=== PATIENT | male | born 1945 | race Caucasian/White ===

== ENCOUNTER 2017-01-15 23:43 | Emergency (ER) | payer MEDICARE ==
[~2017-01-15] VITALS: Ht 170.2 cm; Wt 113.0 kg
[~2017-01-15 23:43] MED LIST: ASPI81 PO; BENA20TA PO; BYST10TA2 PO; CINN500C7 PO; HYDR12.56 PO; LORTA5 PO; PROS5TAB2 PO; TAB-TAB PO; TAMS0.4C67 PO; ULTR50TA PO
[2017-01-15 23:46] VITALS: BP 191/100; PULSE 74; RESP 16; TEMP 98.3; O2SAT 97
[2017-01-16 02:00] LABS: BLOOD, URINE LARGE (NEG); COMMENT (UR) CULTURE INDICATED; CULTURE IF INDICATED CULTURE INDICATED; GLUCOSE,URINE NEG (NEG); KETONE, URINE NEG (NEG); NITRITE,URINE NEG (NEG); PH, URINE 5.5 (5.0-8.5); SQUAMOUS EPITHELIAL CELL URINE 2 /hpf (0-5)
[2017-01-16 02:04] LABS: URINE COLOR RED (YELLW/STRAW)
[2017-01-16] MEDS ORDERED: BYST10TA2 PO (02:53)
[2017-01-16] MEDS ORDERED: BENA20TA PO (02:53)
[2017-01-16] MEDS ORDERED: HYDR25TA5 PO (02:53)
[2017-01-16] MEDS ORDERED: MULT1TAB84 PO (02:53)
[2017-01-16] MEDS ORDERED: HYDR-3516 PO (02:53)
[2017-01-16] MEDS ORDERED: ASPI81CH CHEW (02:53)
[2017-01-16] MEDS ORDERED: CINN500C PO (02:53)
[2017-01-16] MEDS ORDERED: FINA5TAB2 PO (02:53)
[2017-01-16] MEDS ORDERED: TAMS0.4C4 PO (02:53)
[2017-01-16] MEDS ORDERED: SODIUM CHLOR 0.9% 1000 ML INJ 1,000 ML IV ONE (03:15)
[2017-01-16 03:44] LABS: AUTOMATED NEUTROPHIL # 6.3 TH/MM3 (1.8-7.7); BASOPHIL # 0.1 TH/MM3 (0-0.2); BASOPHIL % 0.8 % (0.0-2.0); EOSINOPHIL # 0.4 TH/MM3 (0-0.4); EOSINOPHIL % 4.6 % (0.0-4.0); HEMATOCRIT 45.8 % (39.0-51.0); HEMO FLAGS DIFF FINAL; LYMPHOCYTE # 1.6 TH/MM3 (1.0-4.8); MEAN CELL VOLUME 94.2 FL (80.0-100.0); MEAN CORPUSCULAR HEMOGLOBIN 31.7 PG (27.0-34.0); MEAN CORPUSCULAR HGB CONC 33.6 % (32.0-36.0); MONO % 7.5 % (0.0-8.0); NEUT % 69.1 % (16.0-70.0); PLATELET COUNT 167 TH/MM3 (150-450); RED BLOOD COUNT 4.86 MIL/MM3 (4.50-5.90); RED CELL DISTRIBUTION WIDTH 13.5 % (11.6-17.2); WHITE BLOOD COUNT 9.1 TH/MM3 (4.0-11.0)
[2017-01-16 04:48] LABS: APTT (PATIENT) 25.4 SEC (24.3-30.1); PROTHROMBIN TIME - PATIENT 11.3 SEC (9.8-11.6)
[2017-01-16 04:54] LABS: BICARBONATE 27.6 MEQ/L (21.0-32.0)
[2017-01-16 04:55] LABS: POTASSIUM 3.8 MEQ/L (3.5-5.1)
--- NOTE | 2017-01-16 05:28 | PD ---
HPI Chief Complaint: Complaint Time Seen by Provider: 02:58 Travel History International Travel<30 days: No Contact w/Intl Traveler<30days: No Traveled to known affect area: No History of Present Illness HPI Patient is a 71 year old male who comes in complaining of blood in his urine. He was diagnosed with bladder cancer and had an intra-bladder treatment today. He says this was his third treatment and when he went home from the office, he noticed there was blood in his urine. He says this did not happen the other two treatments. He denies any pain. He denies dizziness, chest pain, or SOB. He says he passed a few clots, but it seems to be improving now. He denies any difficulty urinating. PFSH Past Medical History Arthritis: Yes (OSTEO) Cancer: Yes (SKIN) Cardiac Catheterization: Yes (05/24/09) Cardiovascular Problems: Yes (HTN) Chemotherapy: Yes (BLADDER CA--PMD IN [place]) Diabetes: No Diminished Hearing: Yes (BILATERAL) Diverticulitis: Yes (BOWEL RESECT 2012 FOR DIVERTICULI) Endocrine: No Gastrointestinal Disorders: No Genitourinary: Yes (BPH) Hepatitis: No Hiatal Hernia: No Hypertension: Yes Immune Disorder: No Musculoskeletal: Yes (ARTHRITIS) Neurologic: Yes (NEUROPATHY (SHINGLES HX) RIGHT LEG) Psychiatric: No Respiratory: Yes (ASTHMA (YOUTH)) Immunizations Current: Yes Thyroid Disease: No Tetanus Vaccination: < 5 Years Influenza Vaccination: Yes Past Surgical History Abdominal Surgery: Yes (PRAMOD. ING. HERNIA 1978; COLON RESECTION, LAP YAAKOV., 2007) AICD: No Body Medical Devices: tooth implant Cholecystectomy: Yes Joint Replacement: No Pacemaker: No Other Surgery: Yes (SKIN CA REMOVED L ARM AND NOSE (basal cell)) Social History Alcohol Use: Yes (occasionally) Tobacco Use: No Substance Use: No Allergies-Medications (Allergen,Severity, Reaction): Coded Allergies: Naprosyn (Verified Allergy, Severe, 01/15/17) Quinapril (Verified Allergy, Severe, 01/15/17) Septra (Verified Allergy, Severe, 01/15/17) Reported Meds & Prescriptions Reported Meds & Active Scripts Active Reported Tamsulosin (Tamsulosin HCl) 0.4 Mg Cap 0.4 Mg PO HS Bystolic (Nebivolol) 10 Mg Tab 10 Mg PO DAILY Multivitamin Adults (Multiple Vitamins W/ Minerals) 1 Tab 1 Tab PO DAILY Hydrochlorothiazide 25 Mg Tab 25 Mg PO DAILY Hydrocodone-Acetaminophen 5-325 mg Tab 1 Tab PO Q4H PRN Finasteride 5 Mg Tab 5 Mg PO DAILY Do not crush. Cinnamon 500 Mg Cap 2 Tab PO BID Benazepril (Benazepril HCl) 20 Mg Tab 20 Mg PO DAILY Aspirin 81 Mg Chew 81 Mg CHEW DAILY Review of Systems Except as stated in HPI: all other systems reviewed are Neg General / Constitutional: No: Fever, Chills HENT: No: Headaches, Lightheadedness Cardiovascular: No: Chest Pain or Discomfort, Palpitations Respiratory: No: Shortness of Breath Gastrointestinal: No: Nausea, Vomiting, Abdominal Pain Genitourinary: Positive: Hematuria, No: Dysuria Skin: No Rash, No Change in Pigmentation Neurologic: No: Weakness, Dizziness Physical Exam Narrative GENERAL: Awake and alert, in no acute distress. SKIN: Warm and dry. HEAD: Atraumatic. Normocephalic. EYES: Pupils equal and round. No scleral icterus. No conjunctival pallor. ENT: Mucous membranes pink and moist. NECK: Trachea midline. No JVD. CARDIOVASCULAR: Regular rate and rhythm. RESPIRATORY: No accessory muscle use. Clear to auscultation. Breath sounds equal bilaterally. GASTROINTESTINAL: Abdomen soft, non-tender, nondistended. MUSCULOSKELETAL: Extremities without clubbing, cyanosis, or edema. No obvious deformities. NEUROLOGICAL: Awake and alert. No obvious cranial nerve deficits. Motor grossly within normal limits. Five out of 5 muscle strength in the arms and legs. Normal speech. PSYCHIATRIC: Appropriate mood and affect; insight and judgment normal. Data Data Last Documented VS Vital Signs Date Time Temp Pulse Resp B/P Pulse Ox O2 Delivery O2 Flow Rate FiO2 01/15/17 23:46 98.3 74 16 191/100 97 Room Air Orders Urinalysis - C+S If Indicated (01/16/17 01:12) Urine Culture (01/16/17 01:15) Complete Blood Count With Diff (01/16/17 03:05) Basic Metabolic Panel (Bmp) (01/16/17 03:05) Act Partial Throm Time (Ptt) (01/16/17 03:05) Prothrombin Time / Inr (Pt) (01/16/17 03:05) Sodium Chlor 0.9% 1000 Ml Inj (Ns 1000 M (01/16/17 03:15) Labs Laboratory Tests Test 01/16/17 01/16/17 01/16/17 01/16/17 01:15 03:15 03:45 04:00 Urine Color RED Urine Turbidity CLOUDY Urine pH 5.5 Urine Specific [place] 1.020 Urine Protein 100 mg/dL Urine Glucose (UA) NEG mg/dL Urine Ketones NEG mg/dL Urine Occult Blood LARGE Urine Nitrite NEG Urine Bilirubin NEG Urine Urobilinogen LESS THAN 2.0 MG/DL Urine Leukocyte Esterase LARGE Urine RBC /hpf Urine WBC /hpf Urine Squamous Epithelial 2 /hpf Cells Microscopic Urinalysis Comment CULTURE INDICATED White Blood Count 9.1 TH/MM3 Red Blood Count 4.86 MIL/MM3 Hemoglobin 15.4 GM/DL Hematocrit 45.8 % Mean Corpuscular Volume 94.2 FL Mean Corpuscular Hemoglobin 31.7 PG Mean Corpuscular Hemoglobin 33.6 % Concent Red Cell Distribution Width 13.5 % Platelet Count 167 TH/MM3 Mean Platelet Volume 9.8 FL Neutrophils (%) (Auto) 69.1 % Lymphocytes (%) (Auto) 18.0 % Monocytes (%) (Auto) 7.5 % Eosinophils (%) (Auto) 4.6 % Basophils (%) (Auto) 0.8 % Neutrophils # (Auto) 6.3 TH/MM3 Lymphocytes # (Auto) 1.6 TH/MM3 Monocytes # (Auto) 0.7 TH/MM3 Eosinophils # (Auto) 0.4 TH/MM3 Basophils # (Auto) 0.1 TH/MM3 CBC Comment DIFF FINAL Differential Comment Prothrombin Time 11.3 SEC Prothromb Time International 1.0 RATIO Ratio Activated Partial 25.4 SEC Thromboplast Time Sodium Level 141 MEQ/L Potassium Level 3.8 MEQ/L Chloride Level 104 MEQ/L Carbon Dioxide Level 27.6 MEQ/L Anion Gap 9 MEQ/L Blood Urea Nitrogen 25 MG/DL Creatinine 0.97 MG/DL Estimat Glomerular Filtration 76 ML/MIN Rate Random Glucose 103 MG/DL Calcium Level 8.8 MG/DL [facility] Medical Decision Making Medical Screen Exam Complete: Yes Emergency Medical Condition: Yes Medical Record Reviewed: Yes Differential Diagnosis hematuria vs UTI vs anemia Narrative Course Patient is a 71 year old male who comes in complaining of hematuria. His exam shows no distention of his bladder, no abnormalities. Urine sent for urinalysis is bloody. Labs sent show no evidence of anemia or coagulopathy. Given IVF. He reports the blood seems to be clearing. Patient advised to follow up with his urologist. Advised to return to the ED if the bleeding worsens. Advised to return if he has any difficulty urinating. Advised to return at any time for any worsening symptoms. Diagnosis Primary Impression: Hematuria Patient Instructions: General Instructions, Hematuria (ED) Additional Instructions: Follow up with your urologist. Drink plenty of fluids. Return to the ED for any urinary retention or worsening bleeding. Disposition: 01 DISCHARGE HOME Condition: Stable Mary Waggoner MD Jan 16, 2017 05:28
== END 2017-01-16 05:40 | disposition home or self-care (01) ==
LOC: NEPC 23:43
DX: C67.9 Malignant neoplasm of bladder, unspecified (principal); R31.9 Hematuria, unspecified
CPT/HCPCS: 80048; 81001; 85025; 85610; 85730; 87086; 99283; J7030

== ENCOUNTER 2017-02-01 09:47 | Emergency (ER) | payer MEDICARE ==
[~2017-02-01] VITALS: Ht 170.2 cm; Wt 109.0 kg
[~2017-02-01 09:47] MED LIST changes: -ASPI81 PO; +ASPI81CH CHEW; +CINN500C PO; -CINN500C7 PO; +FINA5TAB2 PO; +HYDR-3516 PO; -HYDR12.56 PO; +HYDR25TA5 PO; -LORTA5 PO; +MULT1TAB84 PO; -PROS5TAB2 PO; -TAB-TAB PO; +TAMS0.4C4 PO; -TAMS0.4C67 PO; -ULTR50TA PO
[2017-02-01 09:48] VITALS: BP 153/79; PULSE 58; RESP 20; TEMP 97.4; O2SAT 96
--- NOTE | 2017-02-01 10:24 | PD ---
HPI Chief Complaint: Urinary frequency Time Seen by Provider: 10:11 Travel History International Travel<30 days: No Contact w/Intl Traveler<30days: No Traveled to known affect area: No History of Present Illness HPI 71yo M with PMH of HTN and bladder CA s/p tumor resection and currently on intrabladder chemo presents to the ED with c/o increased urinary frequency since last night. States that he has been having flu like symptoms and generalized fatigue for 3 days and did not go to his chemo session last Wednesday. Pt follows with urologist Dr. Downing in [place] and last had chemo about 10 days ago. +Nausea. +Loose nonbloody stool. Denies any fever, chills, chest pain, sob, vomiting, abdominal pain, hematuria. PFSH Past Medical History Arthritis: Yes (OSTEO) Cancer: Yes (SKIN, bladder) Cardiac Catheterization: Yes (05/24/09) Cardiovascular Problems: Yes Chemotherapy: Yes Diabetes: No Diminished Hearing: Yes (BILATERAL) Diverticulitis: Yes (BOWEL RESECT 2012 FOR DIVERTICULI) Endocrine: No Gastrointestinal Disorders: No Genitourinary: Yes (BPH) Hepatitis: No Hiatal Hernia: No Hypertension: Yes Immune Disorder: No Musculoskeletal: Yes (ARTHRITIS) Neurologic: Yes (NEUROPATHY (SHINGLES HX) RIGHT LEG) Psychiatric: No Respiratory: Yes (ASTHMA (YOUTH)) Immunizations Current: Yes Thyroid Disease: No Tetanus Vaccination: Unknown ?: Not Past Surgical History Abdominal Surgery: Yes (PRAMOD. ING. HERNIA 1978; COLON RESECTION, LAP YAAKOV., 2008) AICD: No Body Medical Devices: tooth implant Cholecystectomy: Yes Joint Replacement: No Pacemaker: No Other Surgery: Yes (SKIN CA REMOVED L ARM AND NOSE (basal cell)) Social History Alcohol Use: Yes (occasionally) Tobacco Use: No Substance Use: No Allergies-Medications (Allergen,Severity, Reaction): Coded Allergies: Naprosyn (Verified Allergy, Severe, 02/01/17) Quinapril (Verified Allergy, Severe, 02/01/17) Septra (Verified Allergy, Severe, 02/01/17) Reported Meds & Prescriptions Reported Meds & Active Scripts Active Reported Tamsulosin (Tamsulosin HCl) 0.4 Mg Cap 0.4 Mg PO HS Bystolic (Nebivolol) 10 Mg Tab 10 Mg PO DAILY Multivitamin Adults (Multiple Vitamins W/ Minerals) 1 Tab 1 Tab PO DAILY Hydrochlorothiazide 25 Mg Tab 25 Mg PO DAILY Hydrocodone-Acetaminophen 5-325 mg Tab 1 Tab PO Q4H PRN Finasteride 5 Mg Tab 5 Mg PO DAILY Do not crush. Cinnamon 500 Mg Cap 2 Tab PO BID Benazepril (Benazepril HCl) 20 Mg Tab 20 Mg PO DAILY Aspirin 81 Mg Chew 81 Mg CHEW DAILY Review of Systems Except as stated in HPI: all other systems reviewed are Neg Physical Exam Narrative GENERAL: 71yo M not in distress. SKIN: Warm and dry. HEAD: Atraumatic. Normocephalic. EYES: Pupils equal and round. No scleral icterus. No injection or drainage. ENT: No nasal bleeding or discharge. Mucous membranes pink and moist. NECK: Trachea midline. No JVD. CARDIOVASCULAR: Regular rate and rhythm. No murmur appreciated. RESPIRATORY: No accessory muscle use. Clear to auscultation. Breath sounds equal bilaterally. GASTROINTESTINAL: Abdomen soft, non-tender, nondistended. No rebound tenderness or guarding. MUSCULOSKELETAL: No obvious deformities. No clubbing. No cyanosis. No edema. NEUROLOGICAL: Awake and alert. No obvious cranial nerve deficits. Motor grossly within normal limits. Normal speech. PSYCHIATRIC: Appropriate mood and affect; insight and judgment normal. Data Data Last Documented VS Vital Signs Date Time Temp Pulse Resp B/P Pulse Ox O2 Delivery O2 Flow Rate FiO2 02/01/17 12:22 52 18 144/87 99 02/01/17 09:48 97.4 Room Air Orders Urinalysis - C+S If Indicated (02/01/17 10:18) Complete Blood Count With Diff (02/01/17 10:18) Basic Metabolic Panel (Bmp) (02/01/17 10:18) Influenzae A/B Antigen (02/01/17 10:19) Sodium Chlorid 0.9% 500 Ml Inj (Ns 500 M (02/01/17 10:30) Labs Laboratory Tests Test 02/01/17 02/01/17 10:35 10:40 Urine Color YELLOW Urine Turbidity CLEAR Urine pH 5.0 Urine Specific [place] 1.012 Urine Protein NEG mg/dL Urine Glucose (UA) NEG mg/dL Urine Ketones NEG mg/dL Urine Occult Blood NEG Urine Nitrite NEG Urine Bilirubin NEG Urine Urobilinogen LESS THAN 2.0 MG/DL Urine Leukocyte Esterase SMALL Urine RBC LESS THAN 1 /hpf Urine WBC 5 /hpf Urine Squamous Epithelial 1 /hpf Cells Urine Bacteria OCC /hpf Urine Mucus FEW /lpf Microscopic Urinalysis Comment CULT NOT INDICATED White Blood Count 6.3 TH/MM3 Red Blood Count 4.95 MIL/MM3 Hemoglobin 15.7 GM/DL Hematocrit 45.7 % Mean Corpuscular Volume 92.3 FL Mean Corpuscular Hemoglobin 31.8 PG Mean Corpuscular Hemoglobin 34.4 % Concent Red Cell Distribution Width 13.2 % Platelet Count 160 TH/MM3 Mean Platelet Volume 9.7 FL Neutrophils (%) (Auto) 67.0 % Lymphocytes (%) (Auto) 19.8 % Monocytes (%) (Auto) 6.9 % Eosinophils (%) (Auto) 5.4 % Basophils (%) (Auto) 0.9 % Neutrophils # (Auto) 4.2 TH/MM3 Lymphocytes # (Auto) 1.2 TH/MM3 Monocytes # (Auto) 0.4 TH/MM3 Eosinophils # (Auto) 0.3 TH/MM3 Basophils # (Auto) 0.1 TH/MM3 CBC Comment DIFF FINAL Differential Comment Sodium Level 141 MEQ/L Potassium Level 3.8 MEQ/L Chloride Level 106 MEQ/L Carbon Dioxide Level 27.4 MEQ/L Anion Gap 8 MEQ/L Blood Urea Nitrogen 19 MG/DL Creatinine 1.11 MG/DL Estimat Glomerular Filtration 65 ML/MIN Rate Random Glucose 112 MG/DL Calcium Level 8.9 MG/DL [facility] Medical Decision Making Medical Screen Exam Complete: Yes Emergency Medical Condition: Yes Interpretation(s) Laboratory Tests Test 02/01/17 02/01/17 10:35 10:40 Urine Color YELLOW (YELLW/STRAW) Urine Turbidity CLEAR (CLEAR) Urine pH 5.0 (5.0-8.5) Urine Specific [place] 1.012 (1.002-1.035) Urine Protein NEG mg/dL (NEG-TRACE) Urine Glucose (UA) NEG mg/dL (NEG) Urine Ketones NEG mg/dL (NEG) Urine Occult Blood NEG (NEG) Urine Nitrite NEG (NEG) Urine Bilirubin NEG (NEG) Urine Urobilinogen LESS THAN 2.0 MG/DL (LESS THAN 2.0) Urine Leukocyte Esterase SMALL (NEG) Urine RBC LESS THAN 1 /hpf (0-3) Urine WBC 5 /hpf (0-5) Urine Squamous Epithelial 1 /hpf (0-5) Cells Urine Bacteria OCC /hpf (NONE) Urine Mucus FEW /lpf (OCC) Microscopic Urinalysis Comment CULT NOT INDICATED White Blood Count 6.3 TH/MM3 (4.0-11.0) Red Blood Count 4.95 MIL/MM3 (4.50-5.90) Hemoglobin 15.7 GM/DL (13.0-17.0) Hematocrit 45.7 % (39.0-51.0) Mean Corpuscular Volume 92.3 FL (80.0-100.0) Mean Corpuscular Hemoglobin 31.8 PG (27.0-34.0) Mean Corpuscular Hemoglobin 34.4 % Concent (32.0-36.0) Red Cell Distribution Width 13.2 % (11.6-17.2) Platelet Count 160 TH/MM3 (150-450) Mean Platelet Volume 9.7 FL (7.0-11.0) Neutrophils (%) (Auto) 67.0 % (16.0-70.0) Lymphocytes (%) (Auto) 19.8 % (9.0-44.0) Monocytes (%) (Auto) 6.9 % (0.0-8.0) Eosinophils (%) (Auto) 5.4 % (0.0-4.0) Basophils (%) (Auto) 0.9 % (0.0-2.0) Neutrophils # (Auto) 4.2 TH/MM3 (1.8-7.7) Lymphocytes # (Auto) 1.2 TH/MM3 (1.0-4.8) Monocytes # (Auto) 0.4 TH/MM3 (0-0.9) Eosinophils # (Auto) 0.3 TH/MM3 (0-0.4) Basophils # (Auto) 0.1 TH/MM3 (0-0.2) CBC Comment DIFF FINAL Differential Comment Sodium Level 141 MEQ/L (136-145) Potassium Level 3.8 MEQ/L (3.5-5.1) Chloride Level 106 MEQ/L (98-107) Carbon Dioxide Level 27.4 MEQ/L (21.0-32.0) Anion Gap 8 MEQ/L (5-15) Blood Urea Nitrogen 19 MG/DL (7-18) Creatinine 1.11 MG/DL (0.60-1.30) Estimat Glomerular Filtration 65 ML/MIN (>89) Rate Random Glucose 112 MG/DL (74-106) Calcium Level 8.9 MG/DL (8.5-10.1) Differential Diagnosis UTI vs. viral syndrome vs. influenza Narrative Course 71yo M with increased frequency. Denies any systemic complaints or abdominal pain. Pt is worried about urine infection so wanted to make sure. Labs reviewed, no leukocytosis. BUN mildly elevated at 19. Creatinine normal at 1.11. UA showed occasional bacteria but urine WBC is 5. Culture is not indicated. Pt given NS IVF 500cc and feels much better. Pt states he will call his PMD to follow up. Influenza negative. Return precautions given. Diagnosis Primary Impression: Urinary frequency Patient Instructions: General Instructions Departure Forms: Tests/Procedures Additional Instructions: Please follow up with your PMD in 3-7 days. Return to the ED if symptoms worsen. Med/Other Pt SpecificInfo: No Change to Meds Disposition: 01 DISCHARGE HOME Condition: Stable LaurieDorothy DO Feb 01, 2017 10:23
[2017-02-01] MEDS ORDERED: SODIUM CHLORID 0.9% 500 ML INJ 500 ML IV ONE (10:30)
[2017-02-01 11:04] LABS: AUTOMATED NEUTROPHIL # 4.2 TH/MM3 (1.8-7.7); BASOPHIL # 0.1 TH/MM3 (0-0.2); BASOPHIL % 0.9 % (0.0-2.0); EOSINOPHIL # 0.3 TH/MM3 (0-0.4); EOSINOPHIL % 5.4 % (0.0-4.0); HEMATOCRIT 45.7 % (39.0-51.0); HEMO FLAGS DIFF FINAL; LYMPH % 19.8 % (9.0-44.0); LYMPHOCYTE # 1.2 TH/MM3 (1.0-4.8); MEAN CELL VOLUME 92.3 FL (80.0-100.0); MEAN CORPUSCULAR HEMOGLOBIN 31.8 PG (27.0-34.0); MEAN CORPUSCULAR HGB CONC 34.4 % (32.0-36.0); MONO % 6.9 % (0.0-8.0); PLATELET COUNT 160 TH/MM3 (150-450); RED BLOOD COUNT 4.95 MIL/MM3 (4.50-5.90); RED CELL DISTRIBUTION WIDTH 13.2 % (11.6-17.2); WHITE BLOOD COUNT 6.3 TH/MM3 (4.0-11.0)
[2017-02-01 11:17] LABS: BACTERIA, URINE OCC /hpf; BLOOD, URINE NEG (NEG); COMMENT (UR) CULT NOT INDICATED; CULTURE IF INDICATED CULT NOT INDICATED; GLUCOSE,URINE NEG (NEG); KETONE, URINE NEG (NEG); MUCUS URINE FEW /lpf (OCC); NITRITE,URINE NEG (NEG); SQUAMOUS EPITHELIAL CELL URINE 1 /hpf (0-5); URINE COLOR YELLOW (YELLW/STRAW)
[2017-02-01 11:18] LABS: BICARBONATE 27.4 MEQ/L (21.0-32.0); POTASSIUM 3.8 MEQ/L (3.5-5.1)
[2017-02-01 12:22] VITALS: BP 144/87
== END 2017-02-01 13:51 | disposition home or self-care (01) ==
LOC: NEPA 09:47
DX: R35.0 Frequency of micturition (principal); C67.9 Malignant neoplasm of bladder, unspecified; R53.83 Other fatigue; R11.0 Nausea; I10 Essential (primary) hypertension
CPT/HCPCS: 80048; 81001; 85025; 87804; 96360; 99283; J7040

== ENCOUNTER 2017-02-15 07:08 | Emergency (ER) | payer MEDICARE ==
[~2017-02-15] VITALS: Ht 167.6 cm; Wt 110.0 kg
[2017-02-15 07:09] VITALS: BP 172/73; PULSE 66; RESP 20; TEMP 97.9; O2SAT 93
[2017-02-15] MEDS ORDERED: SODIUM CHLORIDE 0.9% FLUSH 10 ML FLUSH IV FLUSH PRN (08:30)
--- NOTE | 2017-02-15 08:35 | PD ---
HPI Chief Complaint: GI Complaint Time Seen by Provider: 08:18 Travel History International Travel<30 days: No Contact w/Intl Traveler<30days: No Traveled to known affect area: No History of Present Illness HPI 71yo M with PMH of bladder CA undergoing intraurethral chemo (last 11 days ago) presents to the ED with c/o nausea and intermittent abdominal pain for 3 days. Denies any fever, chest pain, sob, vomiting, urinary complaints or diarrhea. Normal bowel movement yesterday. Pain is right periumbilical and worst in the morning. PSH colon resection s/p diverticulitis, cholecystectomy, hernia repair. PFSH Past Medical History Arthritis: Yes (OSTEO) Cancer: Yes (SKIN, bladder) Cardiac Catheterization: Yes (05/24/09) Cardiovascular Problems: Yes (HTN) Chemotherapy: Yes (ACTIVE) Diabetes: No Diminished Hearing: Yes (BILATERAL) Diverticulitis: Yes (BOWEL RESECT 2012 FOR DIVERTICULI) Endocrine: No Gastrointestinal Disorders: No Genitourinary: Yes (BPH) Hepatitis: No Hiatal Hernia: No Hypertension: Yes Immune Disorder: No Musculoskeletal: Yes (ARTHRITIS) Neurologic: Yes (NEUROPATHY (SHINGLES HX) RIGHT LEG) Psychiatric: No Respiratory: Yes (ASTHMA (YOUTH)) Immunizations Current: Yes Thyroid Disease: No Influenza Vaccination: Yes Past Surgical History Abdominal Surgery: Yes (PRAMOD. ING. HERNIA 1978; COLON RESECTION, LAP YAAKOV., 2007) AICD: No Body Medical Devices: tooth implant Cholecystectomy: Yes Joint Replacement: No Pacemaker: No Other Surgery: Yes (SKIN CA REMOVED L ARM AND NOSE (basal cell)) Social History Alcohol Use: Yes (occasionally) Tobacco Use: No Substance Use: No Allergies-Medications (Allergen,Severity, Reaction): Coded Allergies: Naprosyn (Verified Allergy, Severe, 02/15/17) Quinapril (Verified Allergy, Severe, 02/15/17) Septra (Verified Allergy, Severe, 02/15/17) Reported Meds & Prescriptions Reported Meds & Active Scripts Active Reported Tamsulosin (Tamsulosin HCl) 0.4 Mg Cap 0.4 Mg PO HS Bystolic (Nebivolol) 10 Mg Tab 10 Mg PO DAILY Multivitamin Adults (Multiple Vitamins W/ Minerals) 1 Tab 1 Tab PO DAILY Hydrochlorothiazide 25 Mg Tab 25 Mg PO DAILY Hydrocodone-Acetaminophen 5-325 mg Tab 1 Tab PO Q4H PRN Finasteride 5 Mg Tab 5 Mg PO DAILY Do not crush. Cinnamon 500 Mg Cap 2 Tab PO BID Benazepril (Benazepril HCl) 20 Mg Tab 20 Mg PO DAILY Aspirin 81 Mg Chew 81 Mg CHEW DAILY Review of Systems Except as stated in HPI: all other systems reviewed are Neg Physical Exam Narrative GENERAL: 71yo M not in distress. SKIN: Focused skin assessment warm/dry. HEAD: Atraumatic. Normocephalic. CARDIOVASCULAR: Regular rate and rhythm. No murmur appreciated. RESPIRATORY: No accessory muscle use. Clear to auscultation. Breath sounds equal bilaterally. GASTROINTESTINAL: Abdomen soft, +Mild ttp right periumbilical region. No rebound tenderness or guarding. MUSCULOSKELETAL: No obvious deformities. No clubbing. No cyanosis. No edema. NEUROLOGICAL: Awake and alert. No obvious cranial nerve deficits. Motor grossly within normal limits. Normal speech. PSYCHIATRIC: Appropriate mood and affect; insight and judgment normal. Data Data Last Documented VS Vital Signs Date Time Temp Pulse Resp B/P Pulse Ox O2 Delivery O2 Flow Rate FiO2 02/15/17 10:21 50 18 130/76 98 Room Air 02/15/17 07:09 97.9 Orders Complete Blood Count With Diff (02/15/17 08:19) Comprehensive Metabolic Panel (02/15/17 08:19) Lipase (02/15/17 08:19) Prothrombin Time / Inr (Pt) (02/15/17 08:19) Act Partial Throm Time (Ptt) (02/15/17 08:19) Urinalysis - C+S If Indicated (02/15/17 08:19) Ct Abd/Pel W Iv Contrast(Rout) (02/15/17 08:19) Iv Access Insert/Monitor (02/15/17 08:19) Ecg Monitoring (02/15/17 08:19) Oximetry (02/15/17 08:19) Sodium Chloride 0.9% Flush (Ns Flush) (02/15/17 08:30) Urine Culture (02/15/17 08:50) Iohexol 350 Inj (Omnipaque 350 Inj) (02/15/17 09:54) Ceftriaxone Inj (Rocephin Inj) (02/15/17 10:15) Labs Laboratory Tests Test 02/15/17 02/15/17 08:40 08:50 White Blood Count 6.4 TH/MM3 Red Blood Count 4.92 MIL/MM3 Hemoglobin 15.5 GM/DL Hematocrit 45.7 % Mean Corpuscular Volume 92.9 FL Mean Corpuscular Hemoglobin 31.6 PG Mean Corpuscular Hemoglobin 34.0 % Concent Red Cell Distribution Width 13.6 % Platelet Count 152 TH/MM3 Mean Platelet Volume 9.3 FL Neutrophils (%) (Auto) 63.0 % Lymphocytes (%) (Auto) 22.8 % Monocytes (%) (Auto) 6.7 % Eosinophils (%) (Auto) 6.4 % Basophils (%) (Auto) 1.1 % Neutrophils # (Auto) 4.0 TH/MM3 Lymphocytes # (Auto) 1.4 TH/MM3 Monocytes # (Auto) 0.4 TH/MM3 Eosinophils # (Auto) 0.4 TH/MM3 Basophils # (Auto) 0.1 TH/MM3 CBC Comment DIFF FINAL Differential Comment Prothrombin Time 11.6 SEC Prothromb Time International 1.0 RATIO Ratio Activated Partial 25.4 SEC Thromboplast Time Sodium Level 143 MEQ/L Potassium Level 3.6 MEQ/L Chloride Level 105 MEQ/L Carbon Dioxide Level 28.2 MEQ/L Anion Gap 10 MEQ/L Blood Urea Nitrogen 22 MG/DL Creatinine 1.01 MG/DL Estimat Glomerular Filtration 72 ML/MIN Rate Random Glucose 115 MG/DL Calcium Level 8.8 MG/DL Total Bilirubin 0.5 MG/DL Aspartate Amino Transf 18 U/L (AST/SGOT) Alanine Aminotransferase 32 U/L (ALT/SGPT) Alkaline Phosphatase 72 U/L Total Protein 6.7 GM/DL Albumin 3.6 GM/DL Lipase 124 U/L Urine Color YELLOW Urine Turbidity CLEAR Urine pH 5.5 Urine Specific [place] 1.017 Urine Protein TRACE mg/dL Urine Glucose (UA) NEG mg/dL Urine Ketones NEG mg/dL Urine Occult Blood NEG Urine Nitrite NEG Urine Bilirubin NEG Urine Urobilinogen LESS THAN 2.0 MG/DL Urine Leukocyte Esterase SMALL Urine RBC 4 /hpf Urine WBC 24 /hpf Urine Squamous Epithelial 1 /hpf Cells Urine Transitional Epithelial <1 /hpf Cells Urine Bacteria OCC /hpf Urine Hyaline Casts 1 /lpf Urine Mucus FEW /lpf Microscopic Urinalysis Comment CULTURE INDICATED MDM Medical Decision Making Medical Screen Exam Complete: Yes Emergency Medical Condition: Yes Interpretation(s) Laboratory Tests Test 02/15/17 02/15/17 08:40 08:50 White Blood Count 6.4 TH/MM3 (4.0-11.0) Red Blood Count 4.92 MIL/MM3 (4.50-5.90) Hemoglobin 15.5 GM/DL (13.0-17.0) Hematocrit 45.7 % (39.0-51.0) Mean Corpuscular Volume 92.9 FL (80.0-100.0) Mean Corpuscular Hemoglobin 31.6 PG (27.0-34.0) Mean Corpuscular Hemoglobin 34.0 % Concent (32.0-36.0) Red Cell Distribution Width 13.6 % (11.6-17.2) Platelet Count 152 TH/MM3 (150-450) Mean Platelet Volume 9.3 FL (7.0-11.0) Neutrophils (%) (Auto) 63.0 % (16.0-70.0) Lymphocytes (%) (Auto) 22.8 % (9.0-44.0) Monocytes (%) (Auto) 6.7 % (0.0-8.0) Eosinophils (%) (Auto) 6.4 % (0.0-4.0) Basophils (%) (Auto) 1.1 % (0.0-2.0) Neutrophils # (Auto) 4.0 TH/MM3 (1.8-7.7) Lymphocytes # (Auto) 1.4 TH/MM3 (1.0-4.8) Monocytes # (Auto) 0.4 TH/MM3 (0-0.9) Eosinophils # (Auto) 0.4 TH/MM3 (0-0.4) Basophils # (Auto) 0.1 TH/MM3 (0-0.2) CBC Comment DIFF FINAL Differential Comment Prothrombin Time 11.6 SEC (9.8-11.6) Prothromb Time International 1.0 RATIO Ratio Activated Partial 25.4 SEC Thromboplast Time (24.3-30.1) Sodium Level 143 MEQ/L (136-145) Potassium Level 3.6 MEQ/L (3.5-5.1) Chloride Level 105 MEQ/L (98-107) Carbon Dioxide Level 28.2 MEQ/L (21.0-32.0) Anion Gap 10 MEQ/L (5-15) Blood Urea Nitrogen 22 MG/DL (7-18) Creatinine 1.01 MG/DL (0.60-1.30) Estimat Glomerular Filtration 72 ML/MIN (>89) Rate Random Glucose 115 MG/DL (74-106) Calcium Level 8.8 MG/DL (8.5-10.1) Total Bilirubin 0.5 MG/DL (0.2-1.0) Aspartate Amino Transf 18 U/L (15-37) (AST/SGOT) Alanine Aminotransferase 32 U/L (12-78) (ALT/SGPT) Alkaline Phosphatase 72 U/L (45-117) Total Protein 6.7 GM/DL (6.4-8.2) Albumin 3.6 GM/DL (3.4-5.0) Lipase 124 U/L (73-393) Urine Color YELLOW (YELLW/STRAW) Urine Turbidity CLEAR (CLEAR) Urine pH 5.5 (5.0-8.5) Urine Specific [place] 1.017 (1.002-1.035) Urine Protein TRACE mg/dL (NEG-TRACE) Urine Glucose (UA) NEG mg/dL (NEG) Urine Ketones NEG mg/dL (NEG) Urine Occult Blood NEG (NEG) Urine Nitrite NEG (NEG) Urine Bilirubin NEG (NEG) Urine Urobilinogen LESS THAN 2.0 MG/DL (LESS THAN 2.0) Urine Leukocyte Esterase SMALL (NEG) Urine RBC 4 /hpf (0-3) Urine WBC 24 /hpf (0-5) Urine Squamous Epithelial 1 /hpf (0-5) Cells Urine Transitional Epithelial <1 /hpf (NONE) Cells Urine Bacteria OCC /hpf (NONE) Urine Hyaline Casts 1 /lpf (RARE) Urine Mucus FEW /lpf (OCC) Microscopic Urinalysis Comment CULTURE INDICATED Last Impressions Abdomen/Pelvis CT 02/15/17 0819 Signed Impressions: Service Date/Time: Wednesday, February 15, 2017 09:49 - CONCLUSION: 1. No definite abnormality to explain the patient's right lower quadrant pain is identified. 2. Postsurgical changes in the distal colon. 3. Mild enlargement of the prostate. 4. Simple cysts within the liver. 5. 1 cm calcified granuloma in the left lung base. Adolfo Baker MD Differential Diagnosis Appendicitis vs. colitis vs. obstruction vs. pancreatitis Narrative Course 71yo well appearing M here with nausea and abdominal pain. Abdominal exam is not very impressive. Labs reviewed, no leukocytosis. Creatinine 1.01. Lipase , LFTs normal. UA showed WBC 24, small leukocyte. Pt given ceftriaxone 1gm IV. CTa/p showed no definite abnormality to explain pt's pain. 1cm calcified granuloma in left lung base. Pt reevaluated at bedside and he is no longer nauseous. Currently with no abdominal pain. Abdomen: soft, NT/ND. No rebound tenderness or guarding. Pt is nontoxic appearing so will try PO antibiotics first. Pt will follow up with his own urologist in [place] as outpatient. Diagnosis Primary Impression: UTI (urinary tract infection) Qualified Code: N39.0 - Urinary tract infection with hematuria, site unspecified Patient Instructions: General Instructions Departure Forms: Tests/Procedures Additional Instructions: Please follow up with your urologist in 3-7 days. Return to the ED if you have fever, worsening abdominal pain or vomiting. Med/Other Pt SpecificInfo: Prescription(s) given Scripts Acetaminophen 325 Mg [id number] Mg PO Q4-6H PRN (PAIN SCALE 1 TO 4) #20 TAB Ref 0 Prov:Dorothy Sullivan DO 02/15/17 Cephalexin (Keflex)500 Mg [id number] Mg PO Q12H 7 Days Ref 0 Prov:Dorothy Sullivan DO 02/15/17 Dorothy Sullivan DO Feb 15, 2017 08:35
[2017-02-15 08:51] LABS: BASOPHIL # 0.1 TH/MM3 (0-0.2); BASOPHIL % 1.1 % (0.0-2.0); EOSINOPHIL # 0.4 TH/MM3 (0-0.4); EOSINOPHIL % 6.4 % (0.0-4.0); HEMATOCRIT 45.7 % (39.0-51.0); HEMO FLAGS DIFF FINAL; LYMPH % 22.8 % (9.0-44.0); LYMPHOCYTE # 1.4 TH/MM3 (1.0-4.8); MEAN CELL VOLUME 92.9 FL (80.0-100.0); MEAN CORPUSCULAR HEMOGLOBIN 31.6 PG (27.0-34.0); MONO % 6.7 % (0.0-8.0); PLATELET COUNT 152 TH/MM3 (150-450); RED BLOOD COUNT 4.92 MIL/MM3 (4.50-5.90); RED CELL DISTRIBUTION WIDTH 13.6 % (11.6-17.2); WHITE BLOOD COUNT 6.4 TH/MM3 (4.0-11.0)
[2017-02-15 08:52] VITALS: O2SAT 96
[2017-02-15 09:05] LABS: APTT (PATIENT) 25.4 SEC (24.3-30.1); PROTHROMBIN TIME - PATIENT 11.6 SEC (9.8-11.6)
[2017-02-15 09:16] LABS: ANION GAP 10 MEQ/L (5-15); AST (GOT) 18 U/L (15-37); BICARBONATE 28.2 MEQ/L (21.0-32.0); BLOOD UREA NITROGEN 22 MG/DL (7-18); CHLORIDE 105 MEQ/L (98-107); GLOMERULAR FILTRATION RATE 72 ML/MIN (>89); POTASSIUM 3.6 MEQ/L (3.5-5.1); SODIUM (NA) 143 MEQ/L (136-145)
[2017-02-15 09:18] LABS: BACTERIA, URINE OCC /hpf; BLOOD, URINE NEG (NEG); COMMENT (UR) CULTURE INDICATED; CULTURE IF INDICATED CULTURE INDICATED; GLUCOSE,URINE NEG (NEG); HYALINE CAST, URINE 1 /lpf (RARE); KETONE, URINE NEG (NEG); MUCUS URINE FEW /lpf (OCC); NITRITE,URINE NEG (NEG); PH, URINE 5.5 (5.0-8.5); SQUAMOUS EPITHELIAL CELL URINE 1 /hpf (0-5); TRANSITIONAL EPI CELLS, URINE <1 /hpf; URINE COLOR YELLOW (YELLW/STRAW)
[2017-02-15 09:20] LABS: ALKALINE PHOSPHATASE 72 U/L (45-117); ALT (GPT) 32 U/L (12-78); TOTAL BILIRUBIN ADULT 0.5 MG/DL (0.2-1.0)
[2017-02-15] MEDS ORDERED: IOHEXOL 350 MG/ML 10 ML VIAL (for RAD DIAG) IV ONE (09:54)
--- NOTE | 2017-02-15 10:12 | RADRPT ---
EXAM DATE/TIME: 02/15/2017 09:49 [facility] COMPARISON: CT PULMONARY ANGIOGRAM, August 12, 2015, 17:40. INDICATIONS : Right lower quadrant pain for 3 days IV CONTRAST: 92 cc Omnipaque 350 (iohexol) IV ORAL CONTRAST: No oral contrast ingested. RADIATION DOSE: 16.62 CTDIvol (mGy) MEDICAL HISTORY : Carcinoma, bladder. Hypertension. SURGICAL HISTORY : Colon resection. Cholecystectomy. ENCOUNTER: Initial ACUITY: 3 days PAIN SCALE: 6/10 LOCATION: Right lower quadrant TECHNIQUE: Volumetric scanning of the abdomen and pelvis was performed. Using automated exposure control and ad justment of the mA and/or kV according to patient size, radiation dose was kept as low as reasonably achievable to obtain optimal diagnostic quality images. FINDINGS: The examination demonstrate a 1 cm calcified granuloma at the left lung base. There is minimal atelec tasis in the right lung base. The appearance of the liver, spleen, pancreas and adrenal glands is within normal limits. There are m ultiple simple cysts within the kidneys. The largest is seen on the right and measures 6.5 cm. The abdominal aorta is normal in caliber. There is no retroperitoneal lymphadenopathy. The visualized loops of small and large bowel in the upper abdomen are normal in appearance. Imaging through the pelvis is provided. The appendix is normal in caliber. No inflammatory changes ar e seen. There is no free fluid within the pelvis. No iliac or inguinal adenopathy is present. The pro state is mildly enlarged measuring 6.3 x 5.3 cm. There are bowel sutures involving the distal colon. CONCLUSION: 1. No definite abnormality to explain the patient's right lower quadrant pain is identified. 2. Postsurgical changes in the distal colon. 3. Mild enlargement of the prostate. 4. Simple cysts within the liver. 5. 1 cm calcified granuloma in the left lung base. Adolfo Baker MD on February 15, 2017 at 10:06 Board Certified Radiologist. This report was verified electronically.
[2017-02-15] MEDS ORDERED: cefTRIAXone INJ 1,000 MG in SODIUM CHLORIDE 0.9% INJ 100 ML IV ONE (10:15)
[2017-02-15 10:21] VITALS: BP 130/76; PULSE 50; RESP 18; O2SAT 98
[2017-02-15] MEDS ORDERED: CEPH-460 PO (10:37)
[2017-02-15] MEDS ORDERED: ACET325T PO (10:37)
== END 2017-02-15 11:10 | disposition home or self-care (01) ==
LOC: NEPE 07:08
DX: C67.9 Malignant neoplasm of bladder, unspecified (principal); N39.0 Urinary tract infection, site not specified; B96.89 Other specified bacterial agents as the cause of diseases classified elsewhere; R31.9 Hematuria, unspecified
CPT/HCPCS: 74177; 80053; 81001; 83690; 85025; 85610; 85730; 87086; 96365; 99284; J0696; Q9967

== ENCOUNTER 2017-03-18 07:37 | Emergency (ER) | payer MEDICARE ==
[~2017-03-18] VITALS: Ht 167.6 cm; Wt 110.0 kg
[~2017-03-18 07:37] MED LIST changes: +ACET325T PO; +CEPH-460 PO
[2017-03-18 07:43] VITALS: BP 184/89; PULSE 18; PULSE 84; RESP 16; TEMP 98.7; O2SAT 99
--- NOTE | 2017-03-18 08:04 | PD ---
HPI Chief Complaint: Abdominal Pain Time Seen by Provider: 07:50 Travel History International Travel<30 days: No Contact w/Intl Traveler<30days: No Traveled to known affect area: No History of Present Illness HPI 71-year-old male presents with diffuse abdominal pain and nausea. He went to an urgent care recently and was diagnosed with the urinary tract infection and placed on ciprofloxacin. He states this feels similar. He states that he hasn' t had any blood in his urine or burning when he urinates but he does urinate frequently. Quality is burning. Severity is mild. He states his urologist is in [place] Dr. Downing and he follows with them for bladder cancer which she completed chemotherapy at the beginning of February. He states that he also follows with a manager of hospital and has an echocardiogram scheduled for tomorrow for just routine testing that he is aware of. He denies any prior heart issues. PFSH Past Medical History Arthritis: Yes (OSTEO) Cancer: Yes (SKIN, bladder) Cardiac Catheterization: Yes (05/24/09) Cardiovascular Problems: Yes (HTN) Chemotherapy: Yes (bladder cancer/ last tx February) Diabetes: No Diminished Hearing: Yes (BILATERAL) Diverticulitis: Yes (BOWEL RESECT 2012 FOR DIVERTICULI) Endocrine: No Gastrointestinal Disorders: No Genitourinary: Yes (BPH) Hepatitis: No Hiatal Hernia: No Hypertension: Yes Immune Disorder: No Musculoskeletal: Yes (ARTHRITIS) Neurologic: Yes (NEUROPATHY (SHINGLES HX) RIGHT LEG) Psychiatric: No Respiratory: Yes (ASTHMA (YOUTH)) Immunizations Current: Yes Thyroid Disease: No Past Surgical History Abdominal Surgery: Yes (PRAMOD. ING. HERNIA 1978; COLON RESECTION, LAP YAAKOV., 2007) AICD: No Body Medical Devices: tooth implant Cholecystectomy: Yes Joint Replacement: No Pacemaker: No Other Surgery: Yes (SKIN CA REMOVED L ARM AND NOSE (basal cell)) Social History Alcohol Use: Yes (occasionally) Tobacco Use: No Substance Use: No Allergies-Medications (Allergen,Severity, Reaction): Coded Allergies: Naprosyn (Verified Allergy, Severe, 03/18/17) Quinapril (Verified Allergy, Severe, 03/18/17) Septra (Verified Allergy, Severe, 03/18/17) Reported Meds & Prescriptions Reported Meds & Active Scripts Active Acetaminophen 325 Mg Tab 325 Mg PO Q4-6H PRN Keflex (Cephalexin) 500 Mg Cap 500 Mg PO Q12H 7 Days Reported Tamsulosin (Tamsulosin HCl) 0.4 Mg Cap 0.4 Mg PO HS Bystolic (Nebivolol) 10 Mg Tab 10 Mg PO DAILY Multivitamin Adults (Multiple Vitamins W/ Minerals) 1 Tab 1 Tab PO DAILY Hydrochlorothiazide 25 Mg Tab 25 Mg PO DAILY Hydrocodone-Acetaminophen 5-325 mg Tab 1 Tab PO Q4H PRN Finasteride 5 Mg Tab 5 Mg PO DAILY Do not crush. Cinnamon 500 Mg Cap 2 Tab PO BID Benazepril (Benazepril HCl) 20 Mg Tab 20 Mg PO DAILY Aspirin 81 Mg Chew 81 Mg CHEW DAILY Review of Systems Except as stated in HPI: all other systems reviewed are Neg Physical Exam Narrative GENERAL: Well-nourished, well-developed patient. Well-appearing SKIN: Warm and dry. HEAD: Normocephalic and atraumatic. EYES: No injection or drainage. ENT: No nasal drainage noted. NECK: Supple, trachea midline. CARDIOVASCULAR: Regular rate and rhythm RESPIRATORY: No increased effort. No accessory muscle use. GASTROINTESTINAL: Abdomen soft, non-tender, nondistended. EXTREMITIES: No edema. BACK: Nontender without obvious deformity. NEUROLOGICAL: Awake and alert. Motor and sensory grossly within normal limits. Normal speech. Data Data Last Documented VS Vital Signs Date Time Temp Pulse Resp B/P Pulse Ox O2 Delivery O2 Flow Rate FiO2 03/18/17 08:10 62 14 97 Room Air 03/18/17 07:43 98.7 184/89 Orders Complete Blood Count With Diff (03/18/17 07:58) Comprehensive Metabolic Panel (03/18/17 07:58) Urinalysis - C+S If Indicated (03/18/17 07:58) Lipase (03/18/17 07:58) Ct Abd/Pel W/O Iv Contrast (03/18/17 ) Iv Access Insert/Monitor (03/18/17 07:58) Oximetry (03/18/17 07:58) Electrocardiogram (03/18/17 ) Labs Laboratory Tests Test 03/18/17 08:05 White Blood Count 6.6 TH/MM3 Red Blood Count 4.93 MIL/MM3 Hemoglobin 15.7 GM/DL Hematocrit 45.5 % Mean Corpuscular Volume 92.3 FL Mean Corpuscular Hemoglobin 31.8 PG Mean Corpuscular Hemoglobin 34.5 % Concent Red Cell Distribution Width 13.4 % Platelet Count 160 TH/MM3 Mean Platelet Volume 9.4 FL Neutrophils (%) (Auto) 60.2 % Lymphocytes (%) (Auto) 21.5 % Monocytes (%) (Auto) 9.8 % Eosinophils (%) (Auto) 6.8 % Basophils (%) (Auto) 1.7 % Neutrophils # (Auto) 4.0 TH/MM3 Lymphocytes # (Auto) 1.4 TH/MM3 Monocytes # (Auto) 0.6 TH/MM3 Eosinophils # (Auto) 0.4 TH/MM3 Basophils # (Auto) 0.1 TH/MM3 CBC Comment DIFF FINAL Differential Comment Urine Color LIGHT-YELLOW Urine Turbidity CLEAR Urine pH 6.0 Urine Specific [place] 1.011 Urine Protein NEG mg/dL Urine Glucose (UA) NEG mg/dL Urine Ketones NEG mg/dL Urine Occult Blood NEG Urine Nitrite NEG Urine Bilirubin NEG Urine Urobilinogen LESS THAN 2.0 MG/DL Urine Leukocyte Esterase TRACE Urine RBC 2 /hpf Urine WBC 5 /hpf Urine Squamous Epithelial 1 /hpf Cells Microscopic Urinalysis Comment CULT NOT INDICATED Sodium Level 142 MEQ/L Potassium Level 4.4 MEQ/L Chloride Level 106 MEQ/L Carbon Dioxide Level 26.8 MEQ/L Anion Gap 9 MEQ/L Blood Urea Nitrogen 19 MG/DL Creatinine 1.07 MG/DL Estimat Glomerular Filtration 68 ML/MIN Rate Random Glucose 111 MG/DL Calcium Level 9.1 MG/DL Total Bilirubin 0.6 MG/DL Aspartate Amino Transf 48 U/L (AST/SGOT) Alanine Aminotransferase 41 U/L (ALT/SGPT) Alkaline Phosphatase 84 U/L Total Protein 7.4 GM/DL Albumin 3.8 GM/DL Lipase 171 U/L [facility] Medical Decision Making Medical Screen Exam Complete: Yes Emergency Medical Condition: Yes Medical Record Reviewed: Yes (past history confirmed) Interpretation(s) EKG shows sinus bradycardia, no ST elevation or depression, and no arrhythmias. No significant T-wave inversions. CBC & BMP Diagram 03/18/17 08:05 Last 24 hours Impressions Abdomen/Pelvis CT 03/18/17 0000 Signed Impressions: Service Date/Time: March 08:35 - CONCLUSION: 1. No acute abnormality. 2. Prior cholecystectomy. 3. Bilateral renal cysts. 4. Colonic diverticulosis. James Chavez Jr., MD Differential Diagnosis Kidney stone, UTI, diverticulitis, pancreatitis, gastritis.... Narrative Course Will check blood work, urinalysis, CT scan abdominal pelvis and dose with Zofran and reevaluate. Location of pain is diffuse ed workup no acute, discussed with patient about possible atypical cardiac presentation and he does not know his history but does follow with a manager of hospital. We'll discuss with his manager of hospital Given recent clean heart catheterization and diffuse abdominal pain and normal EKG patient agrees to discharge with further testing through his primary and possible GI referral. He has no chest pain or shortness of breath or any new complaints and states that they are feeling better. Patient happy with care, all questions answered. Patient knows that follow up is incumbent on them and to return to the emergency room immediately if new or worsening symptoms develop. Patient given strict return precautions, vitals reviewed and are normal , agrees to further workup as an outpatient. Physician Communication Physician Communication dr ferrari states clean cath 2 years ago, ok with dc given presentation and cath report Diagnosis Primary Impression: Abdominal pain Qualified Code: R10.84 - Generalized abdominal pain Patient Instructions: General Instructions Additional Instructions: return as needed, follow with primary this week for recheck, tylenol as needed Med/Other Pt SpecificInfo: No Change to Meds Disposition: 01 DISCHARGE HOME Condition: Stable Maria M Tapia MD March 18, 2017 08:04
[2017-03-18 08:10] VITALS: PULSE 62; RESP 14; O2SAT 97
[2017-03-18 08:40] LABS: BASOPHIL # 0.1 TH/MM3 (0-0.2); BASOPHIL % 1.7 % (0.0-2.0); EOSINOPHIL # 0.4 TH/MM3 (0-0.4); EOSINOPHIL % 6.8 % (0.0-4.0); HEMATOCRIT 45.5 % (39.0-51.0); HEMO FLAGS DIFF FINAL; LYMPH % 21.5 % (9.0-44.0); LYMPHOCYTE # 1.4 TH/MM3 (1.0-4.8); MEAN CELL VOLUME 92.3 FL (80.0-100.0); MEAN CORPUSCULAR HEMOGLOBIN 31.8 PG (27.0-34.0); MEAN CORPUSCULAR HGB CONC 34.5 % (32.0-36.0); MONO % 9.8 % (0.0-8.0); NEUT % 60.2 % (16.0-70.0); PLATELET COUNT 160 TH/MM3 (150-450); RED BLOOD COUNT 4.93 MIL/MM3 (4.50-5.90); RED CELL DISTRIBUTION WIDTH 13.4 % (11.6-17.2); WHITE BLOOD COUNT 6.6 TH/MM3 (4.0-11.0)
[2017-03-18 08:45] LABS: BLOOD, URINE NEG (NEG); COMMENT (UR) CULT NOT INDICATED; CULTURE IF INDICATED CULT NOT INDICATED; GLUCOSE,URINE NEG (NEG); KETONE, URINE NEG (NEG); NITRITE,URINE NEG (NEG); SQUAMOUS EPITHELIAL CELL URINE 1 /hpf (0-5); URINE COLOR LIGHT-YELLOW (YELLW/STRAW)
[2017-03-18 08:59] LABS: ALKALINE PHOSPHATASE 84 U/L (45-117); TOTAL BILIRUBIN ADULT 0.6 MG/DL (0.2-1.0)
[2017-03-18 09:06] LABS: ALT (GPT) 41 U/L (12-78); ANION GAP 9 MEQ/L (5-15); AST (GOT) 48 U/L (15-37); BICARBONATE 26.8 MEQ/L (21.0-32.0); BLOOD UREA NITROGEN 19 MG/DL (7-18); CHLORIDE 106 MEQ/L (98-107); GLOMERULAR FILTRATION RATE 68 ML/MIN (>89); SODIUM (NA) 142 MEQ/L (136-145)
--- NOTE | 2017-03-18 09:12 | RADRPT ---
EXAM DATE/TIME: 03/18/2017 08:35 [facility] COMPARISON: CT ABDOMEN & PELVIS W CONTRAST, February 15, 2017, 9:49. INDICATIONS : Nausea, abdominal pain ORAL CONTRAST: No oral contrast ingested. RADIATION DOSE: 16.30 CTDIvol (mGy) MEDICAL HISTORY : Hypertension. Hernia. SURGICAL HISTORY : Cholecystectomy. ENCOUNTER: Initial ACUITY: 1 week PAIN SCALE: 1/10 LOCATION: Bilateral abominal TECHNIQUE: Volumetric scanning of the abdomen and pelvis was performed. Using automated exposure control and ad justment of the mA and/or kV according to patient size, radiation dose was kept as low as reasonably achievable to obtain optimal diagnostic quality images. FINDINGS: LOWER LUNGS: A calcified granuloma is seen within the left lung base. Linear scarring noted within the right lung base. LIVER: Homogeneous density without lesion. There is no dilation of the biliary tree. Gallbladder is surgica lly absent. SPLEEN: Normal size without lesion. PANCREAS: Within normal limits. KIDNEYS: Normal in size and shape. There is no mass, stone, or hydronephrosis. Bilateral renal cysts. The lar gest involves the anterior upper pole on the right measuring 6.4 cm. ADRENAL GLANDS: Within normal limits. VASCULAR: There is no aortic aneurysm. BOWEL/MESENTERY: The stomach, small bowel, and colon demonstrate no acute abnormality. There is no free intraperitone al air or fluid. Surgical clips associated with the rectosigmoid junction. Scattered colonic divertic gem without acute inflammation. ABDOMINAL WALL: Within normal limits. RETROPERITONEUM: There is no lymphadenopathy. BLADDER: No wall thickening or mass. REPRODUCTIVE: Within normal limits. INGUINAL: There is no lymphadenopathy or hernia. MUSCULOSKELETAL: Within normal limits for patient age. Small intramuscular lipomas are seen involving the left rectus muscle measuring 2.6 cm in diameter in the left gluteus rosey muscle measuring 5.5 cm. CONCLUSION: 1. No acute abnormality. 2. Prior cholecystectomy. 3. Bilateral renal cysts. 4. Colonic diverticulosis. James Chavez Jr., MD on March 18, 2017 at 9:05 Board Certified Radiologist. This report was verified electronically.
[2017-03-18 09:14] LABS: POTASSIUM 4.4 MEQ/L (3.5-5.1)
[2017-03-18 11:09] VITALS: TEMP 98
--- NOTE | 2017-03-18 18:24 | EKG ---
Date Performed: 03/18/2017 Time Performed: 09:36:18 PTAGE: 71 years EKG: SINUS BRADYCARDIA BORDERLINE ECG Compared to prior tracing no significant change PREVIOUS TRACING : 09/05/2015 20.09 DOCTOR: Manuel Rodriguez Interpretating Date/Time 03/18/2017 18:22:08
== END 2017-03-18 11:25 | disposition home or self-care (01) ==
LOC: NEPC 07:37
DX: R10.84 Generalized abdominal pain (principal); I10 Essential (primary) hypertension; G62.9 Polyneuropathy, unspecified; R94.31 Abnormal electrocardiogram [ECG] [EKG]; Z85.51 Personal history of malignant neoplasm of bladder
CPT/HCPCS: 74176; 80053; 81001; 83690; 85025; 93005

== ENCOUNTER 2017-08-07 03:17 | Emergency (ER) | payer MEDICARE ==
[~2017-08-07] VITALS: Ht 170.2 cm; Wt 108.0 kg
[2017-08-07 03:20] VITALS: BP 190/109; PULSE 64; RESP 16; TEMP 98.5; O2SAT 97
--- NOTE | 2017-08-07 04:02 | PD ---
HPI Chief Complaint: Complaint Time Seen by Provider: 03:57 Travel History International Travel<30 days: No Contact w/Intl Traveler<30days: No Traveled to known affect area: No History of Present Illness HPI 71-year-old male presents to the emergency department for noticing blood after having an orgasm reportedly. Patient states subsequently he urinated and did not notice any blood. Patient denies any pain. Patient has had bladder cancer. Patient states poor undergoing treatment for bladder cancer noticed blood few times but has had none since. Patient denies fever chills nausea vomiting abdominal pain penile pain or testicular pain. Also no perineal or buttock pain. Patient rates pain 0/10 intensity. Patient is not diabetic. PFSH Past Medical History Narrative Medical High cholesterol hypertension bladder cancer chemotherapy BPH diverticulitis partial colectomy diverticulitis herniorrhaphy cholecystectomy no tobacco use nursing notes reviewed Arthritis: Yes Cancer: Yes (BLADDER 2016) Cardiac Catheterization: Yes (05/24/09) Cardiovascular Problems: Yes (HTN) High Cholesterol: Yes Chemotherapy: Yes (bladder cancer/ last tx February) Diabetes: No Diminished Hearing: Yes (BILATERAL) Diverticulitis: Yes (BOWEL RESECT 2012 FOR DIVERTICULI) Endocrine: No Gastrointestinal Disorders: No Genitourinary: Yes (BPH) Hepatitis: No Hiatal Hernia: No Hypertension: Yes Immune Disorder: No Musculoskeletal: Yes (ARTHRITIS) Neurologic: Yes (NEUROPATHY (SHINGLES HX) RIGHT LEG) Psychiatric: No Respiratory: Yes (ASTHMA (YOUTH)) Immunizations Current: Yes Thyroid Disease: No Past Surgical History Abdominal Surgery: Yes (1979 hernia repair, GB, BOWEL RESECTION ) AICD: No Body Medical Devices: tooth implant Cholecystectomy: Yes Joint Replacement: No Pacemaker: No Other Surgery: Yes (SKIN CA REMOVED L ARM AND NOSE (basal cell)) Social History Alcohol Use: Yes (1 beer daily ) Tobacco Use: No Substance Use: No Allergies-Medications (Allergen,Severity, Reaction): Coded Allergies: naproxen (Unverified Allergy, Severe, 08/07/17) quinapril (Unverified Allergy, Severe, 08/07/17) sulfamethoxazole (Unverified Allergy, Severe, 08/07/17) trimethoprim (Unverified Allergy, Severe, 08/07/17) Reported Meds & Prescriptions Reported Meds & Active Scripts Active Reported Tamsulosin (Tamsulosin HCl) 0.4 Mg Cap 0.4 Mg PO HS Bystolic (Nebivolol) 10 Mg Tab 10 Mg PO DAILY Hydrochlorothiazide 25 Mg Tab 25 Mg PO DAILY Hydrocodone-Acetaminophen 5-325 mg Tab 1 Tab PO Q4H PRN Finasteride 5 Mg Tab 5 Mg PO DAILY Do not crush. Benazepril (Benazepril HCl) 20 Mg Tab 20 Mg PO DAILY Aspirin 81 Mg Chew 81 Mg CHEW DAILY Review of Systems Except as stated in HPI: all other systems reviewed are Neg General / Constitutional: No: Fever, Chills HENT: No: Congestion Cardiovascular: No: Chest Pain or Discomfort Gastrointestinal: No: Nausea, Vomiting, Abdominal Pain Genitourinary: Positive: Hematuria, No: Dysuria, Pelvic Pain, Flank Pain Musculoskeletal: No: Myalgias, Arthralgias Skin: No Rash Psychiatric: No: Anxiety Endocrine: No: Heat Intolerance Hematologic/Lymphatic: No: Easy Bruising Physical Exam Narrative GENERAL: Well-developed well-nourished male in no acute distress no respiratory distress SKIN: Warm and dry. HEAD: Normocephalic. EYES: No scleral icterus. No injection or drainage. NECK: Supple, trachea midline. No JVD or lymphadenopathy. CARDIOVASCULAR: Regular rate and rhythm without murmurs, gallops, or rubs. RESPIRATORY: Breath sounds equal bilaterally. No accessory muscle use. GASTROINTESTINAL: Abdomen soft, non-tender, nondistended. : Circumcised male with no blood noted at the urethral meatus no ecchymosis no abrasion bilaterally descended testicles. No tenderness to palpation. MUSCULOSKELETAL: No cyanosis, or edema. BACK: Nontender without obvious deformity. No CVA tenderness. Data Data Last Documented VS Vital Signs Date Time Temp Pulse Resp B/P (MAP) Pulse Ox O2 Delivery O2 Flow Rate FiO2 08/07/17 06:29 50 18 139/78 (98) 95 Room Air 08/07/17 03:20 98.5 Orders Orders Urinalysis - C+S If Indicated (08/07/17 03:57) Complete Blood Count With Diff (08/07/17 03:57) Act Partial Throm Time (Ptt) (08/07/17 03:57) Prothrombin Time / Inr (Pt) (08/07/17 03:57) Basic Metabolic Panel (Bmp) (08/07/17 03:57) Labs Laboratory Tests Test 08/07/17 04:30 White Blood Count 7.4 TH/MM3 Red Blood Count 4.65 MIL/MM3 Hemoglobin 15.1 GM/DL Hematocrit 43.5 % Mean Corpuscular Volume 93.5 FL Mean Corpuscular Hemoglobin 32.5 PG Mean Corpuscular Hemoglobin Concent 34.7 % Red Cell Distribution Width 14.1 % Platelet Count 164 TH/MM3 Mean Platelet Volume 9.8 FL Neutrophils (%) (Auto) 52.2 % Lymphocytes (%) (Auto) 29.6 % Monocytes (%) (Auto) 8.1 % Eosinophils (%) (Auto) 9.1 % Basophils (%) (Auto) 1.0 % Neutrophils # (Auto) 3.9 TH/MM3 Lymphocytes # (Auto) 2.2 TH/MM3 Monocytes # (Auto) 0.6 TH/MM3 Eosinophils # (Auto) 0.7 TH/MM3 Basophils # (Auto) 0.1 TH/MM3 CBC Comment DIFF FINAL Differential Comment Prothrombin Time 11.4 SEC Prothromb Time International Ratio 1.0 RATIO Activated Partial Thromboplast Time 25.2 SEC Urine Color YELLOW Urine Turbidity CLEAR Urine pH 5.0 Urine Specific [place] 1.018 Urine Protein NEG mg/dL Urine Glucose (UA) NEG mg/dL Urine Ketones NEG mg/dL Urine Occult Blood TRACE Urine Nitrite NEG Urine Bilirubin NEG Urine Urobilinogen LESS THAN 2.0 MG/DL Urine Leukocyte Esterase TRACE Urine RBC 1 /hpf Urine WBC 1 /hpf Urine Squamous Epithelial Cells <1 /hpf Microscopic Urinalysis Comment CULT NOT INDICATED Blood Urea Nitrogen 26 MG/DL Creatinine 1.02 MG/DL Random Glucose 110 MG/DL Calcium Level 8.7 MG/DL Sodium Level 142 MEQ/L Potassium Level 3.7 MEQ/L Chloride Level 107 MEQ/L Carbon Dioxide Level 29.0 MEQ/L Anion Gap 6 MEQ/L Estimat Glomerular Filtration Rate 72 ML/MIN [facility] Medical Decision Making Medical Screen Exam Complete: Yes Emergency Medical Condition: Yes Medical Record Reviewed: Yes Differential Diagnosis Hematuria, UTI, prostatitis, cystitis, renal mass, bladder mass, coagulopathy, renal insufficiency Narrative Course specimens collected and sent for resulting Trace blood trace leukocyte Estrace culture not indicated Patient with scant hematuria and bloody ejaculate after orgasm. Patient denies any trauma. Patient has no pain. Lab values are grossly within normal range and is stable for outpatient management. Diagnosis Primary Impression: Hematuria Qualified Codes: R31.9 - Hematuria, unspecified Referrals: Urologist call for appointment Patient Instructions: General Instructions Additional Instructions: Continue current chronic medications Increase fluid hydration Follow-up with your urologist Return to the emergency department for any concerns acetaminophen as needed as tolerated for fever 100.4F or greater Med/Other Pt SpecificInfo: No Change to Meds Disposition: 01 DISCHARGE HOME Condition: Stable Agueda Carmona MD Aug 07, 2017 04:02
[2017-08-07 04:47] LABS: BLOOD, URINE TRACE (NEG); COMMENT (UR) CULT NOT INDICATED; CULTURE IF INDICATED CULT NOT INDICATED; GLUCOSE,URINE NEG (NEG); KETONE, URINE NEG (NEG); NITRITE,URINE NEG (NEG); SQUAMOUS EPITHELIAL CELL URINE <1 /hpf (0-5); URINE COLOR YELLOW (YELLW/STRAW)
[2017-08-07 04:57] LABS: APTT (PATIENT) 25.2 SEC (24.3-30.1); PROTHROMBIN TIME - PATIENT 11.4 SEC (9.8-11.6)
[2017-08-07 04:59] LABS: POTASSIUM 3.7 MEQ/L (3.5-5.1)
[2017-08-07 05:14] LABS: AUTOMATED NEUTROPHIL # 3.9 TH/MM3 (1.8-7.7); BASOPHIL # 0.1 TH/MM3 (0-0.2); EOSINOPHIL # 0.7 TH/MM3 (0-0.4); EOSINOPHIL % 9.1 % (0.0-4.0); HEMATOCRIT 43.5 % (39.0-51.0); HEMO FLAGS DIFF FINAL; LYMPH % 29.6 % (9.0-44.0); LYMPHOCYTE # 2.2 TH/MM3 (1.0-4.8); MEAN CELL VOLUME 93.5 FL (80.0-100.0); MEAN CORPUSCULAR HEMOGLOBIN 32.5 PG (27.0-34.0); MEAN CORPUSCULAR HGB CONC 34.7 % (32.0-36.0); MONO % 8.1 % (0.0-8.0); NEUT % 52.2 % (16.0-70.0); PLATELET COUNT 164 TH/MM3 (150-450); RED BLOOD COUNT 4.65 MIL/MM3 (4.50-5.90); RED CELL DISTRIBUTION WIDTH 14.1 % (11.6-17.2); WHITE BLOOD COUNT 7.4 TH/MM3 (4.0-11.0)
[2017-08-07 06:29] VITALS: BP 139/78; PULSE 50; RESP 18; O2SAT 95
== END 2017-08-07 06:32 | disposition home or self-care (01) ==
LOC: NEPC 03:17
DX: R31.9 Hematuria, unspecified (principal); I10 Essential (primary) hypertension; Z85.51 Personal history of malignant neoplasm of bladder
CPT/HCPCS: 80048; 81001; 85025; 85610; 85730; 99283

== ENCOUNTER 2018-01-06 13:37 | Emergency (ER) | payer MEDICARE ==
[~2018-01-06 13:37] MED LIST changes: -ACET325T PO; +ASPI-516 CHEW; -ASPI81CH CHEW; -CEPH-460 PO; -CINN500C PO; -MULT1TAB84 PO
[2018-01-06 13:40] VITALS: BP 145/92; PULSE 64; RESP 14; TEMP 98.5; O2SAT 95
[2018-01-06 15:11] LABS: BILIRUBIN, URINE NEG (NEG); BLOOD, URINE NEG (NEG); GLUCOSE,URINE NEG (NEG); HYALINE CAST, URINE 3 /lpf (RARE); KETONE, URINE NEG (NEG); MUCUS URINE FEW /lpf (OCC); NITRITE,URINE NEG (NEG); PH, URINE 6.5 (5.0-8.5); SQUAMOUS EPITHELIAL CELL URINE 1 /hpf (0-5); URINE COLOR YELLOW (YELLW/STRAW); URINE LEUKOCYTE ESTERASE NEG (NEG)
[2018-01-06 15:12] LABS: AUTOMATED NEUTROPHIL # 4.5 TH/MM3 (1.8-7.7); BASOPHIL # 0.1 TH/MM3 (0-0.2); BASOPHIL % 1.1 % (0.0-2.0); EOSINOPHIL # 0.4 TH/MM3 (0-0.4); EOSINOPHIL % 5.5 % (0.0-4.0); HEMATOCRIT 46.5 % (39.0-51.0); HEMOGLOBIN 16.3 GM/DL (13.0-17.0); LYMPH % 20.6 % (9.0-44.0); LYMPHOCYTE # 1.4 TH/MM3 (1.0-4.8); MEAN CELL VOLUME 92.6 FL (80.0-100.0); MEAN CORPUSCULAR HEMOGLOBIN 32.4 PG (27.0-34.0); MEAN CORPUSCULAR HGB CONC 35.1 % (32.0-36.0); MEAN PLATELET VOLUME 9.8 FL (7.0-11.0); MONO % 6.4 % (0.0-8.0); MONOCYTE # 0.4 TH/MM3 (0-0.9); NEUT % 66.4 % (16.0-70.0); PLATELET COUNT 189 TH/MM3 (150-450); RED BLOOD COUNT 5.02 MIL/MM3 (4.50-5.90); RED CELL DISTRIBUTION WIDTH 13.6 % (11.6-17.2); WHITE BLOOD COUNT 6.8 TH/MM3 (4.0-11.0)
[2018-01-06 15:32] LABS: CALCIUM 9.2 MG/DL (8.5-10.1); CREATININE 0.95 MG/DL (0.60-1.30)
--- NOTE | 2018-01-06 17:08 | PD ---
HPI . Abdominal pain Chief Complaint: GI Complaint Time Seen by Provider: 16:07 Travel History International Travel<30 days: No Contact w/Intl Traveler<30days: No Traveled to known affect area: No History of Present Illness HPI This patient presents with chief complaint of abdominal pain. Onset was about 10 days ago. He states that it became worse today. He describes diffuse, achy , bloating pain 05/24. He has not noticed any exacerbating factors. He does state that he has a remote history of diverticulitis. He underwent bowel resection no further problems with the diverticulitis since the resection. He does state that he's having good bowel movements. He has not run any fever. PFSH Past Medical History Arthritis: Yes Cancer: Yes (BLADDER 2017) Cardiac Catheterization: Yes (05/24/09) Cardiovascular Problems: Yes (HTN) High Cholesterol: Yes Chemotherapy: Yes (bladder cancer/ last tx February) Diabetes: No Diminished Hearing: Yes (BILATERAL) Diverticulitis: Yes (BOWEL RESECT 2012 FOR DIVERTICULI) Endocrine: No Gastrointestinal Disorders: No Genitourinary: Yes (BPH) Hepatitis: No Hiatal Hernia: No Hypertension: Yes Immune Disorder: No Musculoskeletal: Yes (ARTHRITIS) Neurologic: Yes (NEUROPATHY (SHINGLES HX) RIGHT LEG) Psychiatric: No Respiratory: Yes (ASTHMA (YOUTH)) Immunizations Current: Yes Thyroid Disease: No Past Surgical History Abdominal Surgery: Yes (1979 hernia repair, GB, BOWEL RESECTION ) AICD: No Body Medical Devices: tooth implant Cholecystectomy: Yes Joint Replacement: No Pacemaker: No Other Surgery: Yes (SKIN CA REMOVED L ARM AND NOSE (basal cell)) Social History Alcohol Use: Yes (1 beer daily ) Tobacco Use: No Substance Use: No Allergies-Medications (Allergen,Severity, Reaction): Coded Allergies: naproxen (Unverified Allergy, Severe, 08/07/17) quinapril (Unverified Allergy, Severe, 08/07/17) sulfamethoxazole (Unverified Allergy, Severe, 08/07/17) trimethoprim (Unverified Allergy, Severe, 08/07/17) Reported Meds & Prescriptions Reported Meds & Active Scripts Active Reported Tamsulosin (Tamsulosin HCl) 0.4 Mg Cap 0.4 Mg PO HS Bystolic (Nebivolol) 10 Mg Tab 10 Mg PO DAILY Hydrochlorothiazide 25 Mg Tab 25 Mg PO DAILY Finasteride 5 Mg Tab 5 Mg PO DAILY Do not crush. Benazepril (Benazepril HCl) 20 Mg Tab 20 Mg PO DAILY Aspirin 81 Mg Chew 81 Mg CHEW DAILY Review of Systems Except as stated in HPI: all other systems reviewed are Neg General / Constitutional: No: Fever, Chills Gastrointestinal: Positive: Abdominal Pain, No: Nausea, Vomiting, Diarrhea, Constipation, Loss of Appetite Genitourinary: No: Urgency, Frequency, Dysuria Physical Exam Narrative GENERAL: Awake and alert and in no acute distress. SKIN: warm/dry. Normal color and turgor. HEAD: Normocephalic. Atraumatic. EYES: Pupils equal and round. No scleral icterus. No injection or drainage. ENT: No nasal bleeding or discharge. Mucous membranes pink and moist. NECK: Trachea midline. Full range of motion without pain.. CARDIOVASCULAR: Regular rate and rhythm. RESPIRATORY: No accessory muscle use. Clear to auscultation. Breath sounds equal bilaterally. GASTROINTESTINAL: Abdomen soft. Nontender. Bowel sounds present. Nondistended. MUSCULOSKELETAL: No obvious deformities. NEUROLOGICAL: Awake and alert. No obvious cranial nerve deficits. Motor grossly within normal limits. Normal speech. PSYCHIATRIC: Appropriate mood and affect; insight and judgment normal. Data Data Last Documented VS Vital Signs Date Time Temp Pulse Resp B/P (MAP) Pulse Ox O2 Delivery O2 Flow Rate FiO2 01/06/18 13:40 98.5 64 14 145/92 (109) 95 Orders Orders Complete Blood Count With Diff (01/06/18 13:53) Basic Metabolic Panel (Bmp) (01/06/18 13:53) Urinalysis - C+S If Indicated (01/06/18 13:53) Ct Abd/Pel W Iv Contrast(Rout) (01/06/18 16:31) Labs Laboratory Tests Test 01/06/18 14:00 01/06/18 14:02 White Blood Count 6.8 TH/MM3 Red Blood Count 5.02 MIL/MM3 Hemoglobin 16.3 GM/DL Hematocrit 46.5 % Mean Corpuscular Volume 92.6 FL Mean Corpuscular Hemoglobin 32.4 PG Mean Corpuscular Hemoglobin Concent 35.1 % Red Cell Distribution Width 13.6 % Platelet Count 189 TH/MM3 Mean Platelet Volume 9.8 FL Neutrophils (%) (Auto) 66.4 % Lymphocytes (%) (Auto) 20.6 % Monocytes (%) (Auto) 6.4 % Eosinophils (%) (Auto) 5.5 % Basophils (%) (Auto) 1.1 % Neutrophils # (Auto) 4.5 TH/MM3 Lymphocytes # (Auto) 1.4 TH/MM3 Monocytes # (Auto) 0.4 TH/MM3 Eosinophils # (Auto) 0.4 TH/MM3 Basophils # (Auto) 0.1 TH/MM3 CBC Comment DIFF FINAL Differential Comment Blood Urea Nitrogen 18 MG/DL Creatinine 0.95 MG/DL Random Glucose 110 MG/DL Calcium Level 9.2 MG/DL Sodium Level 140 MEQ/L Potassium Level 3.7 MEQ/L Chloride Level 105 MEQ/L Carbon Dioxide Level 25.0 MEQ/L Anion Gap 10 MEQ/L Estimat Glomerular Filtration Rate 77 ML/MIN Urine Color YELLOW Urine Turbidity CLEAR Urine pH 6.5 Urine Specific [place] 1.010 Urine Protein NEG mg/dL Urine Glucose (UA) NEG mg/dL Urine Ketones NEG mg/dL Urine Occult Blood NEG Urine Nitrite NEG Urine Bilirubin NEG Urine Urobilinogen LESS THAN 2.0 MG/DL Urine Leukocyte Esterase NEG Urine RBC 1 /hpf Urine WBC 1 /hpf Urine Squamous Epithelial Cells 1 /hpf Urine Hyaline Casts 3 /lpf Urine Mucus FEW /lpf Microscopic Urinalysis Comment CULT NOT INDICATED MDM Medical Decision Making Medical Screen Exam Complete: Yes Emergency Medical Condition: Yes Differential Diagnosis Differential diagnosis of abdominal pain includes but is not limited to gastritis, pancreatitis, hepatitis, gastroenteritis, gallbladder disease, constipation, urinary retention, UTI, peptic ulcer disease, diverticulitis or appendicitis Narrative Course This patient presents with a chief complaint of generalized abdominal pain and bloating. He reports a history of diverticulitis and states that the discomfort is similar. However, he has had a partial colectomy for diverticulitis and has had no further problems since then. Bowel obstruction also needs to be considered but he has been having normal bowel movements. CBC & BMP Diagram 01/06/18 14:00 Calcium Level 9.[address] have ordered a CT which is pending. His care is being turned over to Dr. Sullivan at this time pending the CT. Diagnosis Primary Impression: Abdominal pain Qualified Codes: R10.84 - Generalized abdominal pain Condition: Stable Julianne Velazquez MD Jan 06, 2018 17:08
--- NOTE | 2018-01-06 17:29 | PD ---
Physical Exam Narrative Received sign out from previous team to follow up with CT scan. 72yo M with PMH of diverticulitis s/p resection here with lower abdominal burning sensation for 10 days. Said it is intermittent. Said it is in the morning and feels like bloating. Denies any fever, nausea, vomiting, chest pain , sob, urinary complaints. Labs reviewed, no leukocytosis. H/H normal. BMP unremarkable. UA negative. Pt currently has no pain on exam and is well appearing. Tolerating PO. CT a/p showed no acute CT findings in abdomen or pelvis. Pt is very well appearing and has no pain now. Return precautions given. Data Data Last Documented VS Vital Signs Date Time Temp Pulse Resp B/P (MAP) Pulse Ox O2 Delivery O2 Flow Rate FiO2 01/06/18 18:00 68 15 138/89 (105) 98 Room Air 01/06/18 13:40 98.5 Orders Orders Complete Blood Count With Diff (01/06/18 13:53) Basic Metabolic Panel (Bmp) (01/06/18 13:53) Urinalysis - C+S If Indicated (01/06/18 13:53) Ct Abd/Pel W Iv Contrast(Rout) (01/06/18 16:31) Iohexol 350 Inj (Omnipaque 350 Inj) (01/06/18 18:01) Labs Laboratory Tests Test 01/06/18 14:00 01/06/18 14:02 White Blood Count 6.8 TH/MM3 Red Blood Count 5.02 MIL/MM3 Hemoglobin 16.3 GM/DL Hematocrit 46.5 % Mean Corpuscular Volume 92.6 FL Mean Corpuscular Hemoglobin 32.4 PG Mean Corpuscular Hemoglobin Concent 35.1 % Red Cell Distribution Width 13.6 % Platelet Count 189 TH/MM3 Mean Platelet Volume 9.8 FL Neutrophils (%) (Auto) 66.4 % Lymphocytes (%) (Auto) 20.6 % Monocytes (%) (Auto) 6.4 % Eosinophils (%) (Auto) 5.5 % Basophils (%) (Auto) 1.1 % Neutrophils # (Auto) 4.5 TH/MM3 Lymphocytes # (Auto) 1.4 TH/MM3 Monocytes # (Auto) 0.4 TH/MM3 Eosinophils # (Auto) 0.4 TH/MM3 Basophils # (Auto) 0.1 TH/MM3 CBC Comment DIFF FINAL Differential Comment Blood Urea Nitrogen 18 MG/DL Creatinine 0.95 MG/DL Random Glucose 110 MG/DL Calcium Level 9.2 MG/DL Sodium Level 140 MEQ/L Potassium Level 3.7 MEQ/L Chloride Level 105 MEQ/L Carbon Dioxide Level 25.0 MEQ/L Anion Gap 10 MEQ/L Estimat Glomerular Filtration Rate 77 ML/MIN Urine Color YELLOW Urine Turbidity CLEAR Urine pH 6.5 Urine Specific [place] 1.010 Urine Protein NEG mg/dL Urine Glucose (UA) NEG mg/dL Urine Ketones NEG mg/dL Urine Occult Blood NEG Urine Nitrite NEG Urine Bilirubin NEG Urine Urobilinogen LESS THAN 2.0 MG/DL Urine Leukocyte Esterase NEG Urine RBC 1 /hpf Urine WBC 1 /hpf Urine Squamous Epithelial Cells 1 /hpf Urine Hyaline Casts 3 /lpf Urine Mucus FEW /lpf Microscopic Urinalysis Comment CULT NOT INDICATED MDM Supervised Visit with REBECA: No Diagnosis Primary Impression: Abdominal bloating Patient Instructions: General Instructions Departure Forms: Tests/Procedures Additional Instruction: Please follow up with your primary care physician in 2-3 days. Return to the ED if symptoms worsen. Med/Other Pt SpecificInfo: No Change to Meds Disposition: 01 DISCHARGE HOME Condition: Stable Dorothy Sullivan DO Jan 06, 2018 17:29
[2018-01-06 18:00] VITALS: BP 138/89; PULSE 68; RESP 15; O2SAT 98
[2018-01-06] MEDS ORDERED: IOHEXOL 350 MG/ML 10 ML VIAL (for RAD DIAG) IVCONTRAST ONE (18:01)
--- NOTE | 2018-01-06 18:07 | RADRPT ---
EXAM DATE/TIME: 01/06/2018 17:48 [facility] COMPARISON: CT ABDOMEN & PELVIS W/O CONTRAST, March 18, 2017, 8:35. INDICATIONS : Lower abdominal pain. IV CONTRAST: 100 cc Omnipaque 350 (iohexol) IV ORAL CONTRAST: No oral contrast ingested. RADIATION DOSE: 19.99 CTDIvol (mGy) MEDICAL HISTORY : Hypertension. Diverticulitis. Carcinoma, bladder. SURGICAL HISTORY : Colon resection. ENCOUNTER: Initial ACUITY: 1 week PAIN SCALE: 2/10 LOCATION: lower quadrant abdomen TECHNIQUE: Volumetric scanning of the abdomen and pelvis was performed. Using automated exposure control and ad justment of the mA and/or kV according to patient size, radiation dose was kept as low as reasonably achievable to obtain optimal diagnostic quality images. DICOM format image data is available electro nically for review and comparison. FINDINGS: LOWER LUNGS: Stable scarring or atelectasis in the posterior right lung base. Densely calcified granuloma in the p osterior left costophrenic sulcus LIVER: Homogeneous density without lesion. There is no dilation of the biliary tree. No calcified gallston es. SPLEEN: Normal size without lesion. PANCREAS: Within normal limits. KIDNEYS: Cysts involving the kidneys bilaterally. No evidence of hydronephrosis or stone. ADRENAL GLANDS: Within normal limits. VASCULAR: There is no aortic aneurysm. BOWEL/MESENTERY: Rectal anastomosis. No abnormal dilatation of bowel. No focal inflammatory changes or wall thickening . No mesenteric adenopathy or free fluid. ABDOMINAL WALL: Small fat containing umbilical hernia. RETROPERITONEUM: There is no lymphadenopathy. BLADDER: No wall thickening or mass. REPRODUCTIVE: Prostate is enlarged. No evidence of pelvic mass or free fluid. INGUINAL: There is no lymphadenopathy or hernia. MUSCULOSKELETAL: Within normal limits for patient age. CONCLUSION: No acute CT findings in the abdomen or pelvis. Marquez Lowe MD on January 06, 2018 at 18:02 Board Certified Radiologist. This report was verified electronically.
== END 2018-01-06 20:16 | disposition home or self-care (01) ==
LOC: NEPD 13:37
DX: R14.0 Abdominal distension (gaseous) (principal); R10.84 Generalized abdominal pain; I10 Essential (primary) hypertension; N40.0 Benign prostatic hyperplasia without lower urinary tract symptoms; Z85.51 Personal history of malignant neoplasm of bladder
CPT/HCPCS: 74177; 80048; 81001; 85025; 99284; Q9967